=== PATIENT | male | born 1990 | race Caucasian/White ===

== ENCOUNTER 2017-05-27 16:30 | Emergency (ER) | payer SELFPAY ==
[~2017-05-27] VITALS: Ht 167.6 cm; Wt 60.8 kg
[2017-05-27] MEDS ORDERED: PREDNISONE20 MG PO (18:38)
[2017-05-27] MEDS ORDERED: VENTOLIN HFA18 GM IH (18:38)
[2017-05-27 19:04] VITALS: BP 131/93
== END 2017-05-27 19:04 | disposition home or self-care (01) ==
LOC: EME 16:30
DX: J40 Bronchitis, not specified as acute or chronic (principal); F17.200 Nicotine dependence, unspecified, uncomplicated
CPT/HCPCS: 71020; 93005; 94640; 99281; 99284; J7512